=== PATIENT | male | born 2000 | race Two or more races ===

== ENCOUNTER 2025-04-13 20:39 | Emergency (ER) | payer OTHER ==
[~2025-04-13] VITALS: Ht 185.4 cm; Wt 86.2 kg
[2025-04-13] MEDS ORDERED: CLINDAMYCIN PHOSPHATE 150 MG/ML (600mg) IM STA (21:34)
[2025-04-13] MEDS ORDERED: CLINDAMYCIN PHOSPHATE 150 MG/ML (300mg) ONE (22:06)
[2025-04-13 22:26] VITALS: BP 120/73; O2SAT 98
== END 2025-04-13 22:26 | disposition home or self-care (01) ==
LOC: ER 21:06
DX: L03.116 Cellulitis of left lower limb (principal); L03.115 Cellulitis of right lower limb